=== PATIENT | female | born 1960 | race Caucasian/White ===

== ENCOUNTER 2017-02-10 06:36 | Inpatient (IN) | payer OTHER ==
[~2017-02-10] VITALS: Ht 167.6 cm; Wt 78.6 kg
[~2017-02-10 06:36] MED LIST: ALBU8.5H5 INH; ASCO10004 PO; CEPH-368 PO; CHOL400C PO; CHOL500015 PO; COLON HEALTH PO; DEXA2TAB PO; DIAZ5TAB4 PO; ESOM40CA PO; ESTR1PAT10 TD; FISH OIL OMEGA1 EACH PO; HYDR-3144 PO; HYDR-3240 PO; HYDR-3307 PO; HYDR25TA6 PO; KRIL1CAP14 PO; LACT1CAP35 PO; LISI30TA4 PO; LORA10TA75 PO; METH4TAB2 PO; METH750T87 PO; MULT-6 PO; ONDA4TAB10 PO; OXYC-229 PO; OXYC5TAB3 PO; PANT40TA5 PO; PROM25SU34 RC; VANC125C2 PO; VANC1VIA3 PO; VITA1TAB3 PO; VITAMIN E PO; ZOLP-413 PO
[2017-02-10] MEDS ORDERED: ACETAMINOPHEN 500 MG TABLET PO ONE (07:00)
[2017-02-10] MEDS ORDERED: SODIUM CHLORIDE FLUSH 10ML SYR IVF ONE (07:00)
[2017-02-10] MEDS ORDERED: SODIUM CHLORIDE 0.9% 1,000ML IVBOLUS ONE (07:00)
[2017-02-10] MEDS ORDERED: ONDANSETRON 2MG/ML, 2ML IVPush ONE (07:00)
[2017-02-10] MEDS ORDERED: ONDANSETRON 2MG/ML, 2ML ONE (07:01)
[2017-02-10] MEDS ORDERED: ACETAMINOPHEN 500 MG TABLET ONE (07:01)
[2017-02-10] MEDS ORDERED: METOCLOPRAMIDE 5 MG/ML, 2ML IVPush ONE (07:30)
[2017-02-10] MEDS ORDERED: HYDROmorphone 1 MG/ML, 1ML ONE ×2 (07:42→10:02)
[2017-02-10 07:43] LABS: HEMOGLOBIN 12.8 g/dL (11.7-16.4)
[2017-02-10] MEDS ORDERED: METOCLOPRAMIDE 5 MG/ML, 2ML ONE (07:43)
[2017-02-10] MEDS: HYDROmorphone 1 MG/ML, 1ML IVPush PRN ×2 (07:45→10:06)
[2017-02-10 07:54] LABS: ASPARTATE AMINO TRANSFERASE 11 U/L (15-37); BLOOD UREA NITROGEN 5 mg/dL (7-18)
[2017-02-10] MEDS ORDERED: PIPERACILLIN/TAZO/PMX 3.375GM 50 ML IVPB ONE (08:00)
[2017-02-10 08:16] LABS: DIFF TOTAL CELLS COUNTED 100 CELL DIFF
[2017-02-10 08:19] LABS: VERIFY COUNTS? YES
[2017-02-10] MEDS ORDERED: SODIUM CHLORIDE 0.9% 1,000 ML IV ONE (08:40)
[2017-02-10] MEDS ORDERED: OMNIPAQUE 350 MG/ML, 100ML BOTTLE ONE (08:57)
[2017-02-10] MEDS ORDERED: PIPERACILLIN/TAZO/PMX 3.375GM 50 ML ONE (09:11)
[2017-02-10] MEDS ORDERED: VANCOMYCIN PER PHARMACY MC PRN (09:30)
[2017-02-10] MEDS ORDERED: ACETAMINOPHEN 325 MG TABLET PO PRN (10:00)
[2017-02-10] MEDS ORDERED: POLYETHYLENE GLYCOL 17 GM PACKET PO PRN (10:00)
[2017-02-10] MEDS ORDERED: DOCUSATE 100 MG CAPSULE PO PRN (10:00)
[2017-02-10] MEDS ORDERED: OXYcodone IR 5MG TABLET PO PRN (10:00)
[2017-02-10] MEDS: PIPERACILLIN/TAZO/PMX 3.375GM 50 ML IV SCH ×3 (10:00→21:44)
[2017-02-10] MEDS ORDERED: BISACODYL 10 MG SUPP PR PRN (10:00)
[2017-02-10] MEDS ORDERED: GASTROGRAFIN 120 ML SOLN PO ONE (10:11)
[2017-02-10 10:20] LABS: IS PT STATUS REG ER OR PRE ER? NO
[2017-02-10] MEDS ORDERED: ENOXAPARIN 40 MG/0.4 ML ONE (11:32)
[2017-02-10] MEDS: ENOXAPARIN 40 MG/0.4 ML SQ SCH (11:55)
[2017-02-10] MEDS ORDERED: MORPHINE SULFATE 4 MG/ML, 1ML ONE (12:14)
[2017-02-10] MEDS: MORPHINE SULFATE 4 MG/ML, 1ML IVPush PRN ×4 (12:15→22:47)
[2017-02-10] MEDS ORDERED: PHARMACOKINETIC CONSULTATION MC ONE (13:00)
[2017-02-10] MEDS ORDERED: PHARMACOKINETIC MONITORING MC PRN (13:30)
[2017-02-10 14:00] VITALS: BP 130/83
[2017-02-10] MEDS: VANCOMYCIN 1,500 MG in SODIUM CHLORIDE 0.9% 250 ML IV SCH (14:08)
[2017-02-10 15:56] LABS: IS PT STATUS REG ER OR PRE ER? NO
[2017-02-10] MEDS ORDERED: ENALAPRILAT 1.25 MG/ML, 2ML IV PRN (17:30)
[2017-02-10] MEDS: LORazepam 2 MG/ML, 1ML IVPush PRN (18:13)
[2017-02-10 20:04] VITALS: BP 130/83
[2017-02-10] MEDS: BENZOCAINE 20% SPRAY 0.5ML TP PRN ×3 (20:19→22:48)
[2017-02-10] MEDS: ALBUTEROL SULFATE 2.5 MG/3 ML NPPB PRN (22:27)
[2017-02-11 02:58] VITALS: BP 117/72
[2017-02-11] MEDS: BENZOCAINE 20% SPRAY 0.5ML TP PRN ×2 (03:17→09:35)
[2017-02-11] MEDS: MORPHINE SULFATE 4 MG/ML, 1ML IVPush PRN ×5 (03:17→18:57)
[2017-02-11] MEDS: PIPERACILLIN/TAZO/PMX 3.375GM 50 ML IV SCH ×4 (03:20→21:44)
[2017-02-11 06:26] LABS: HEMOGLOBIN 11.1 g/dL (11.7-16.4)
[2017-02-11 06:43] LABS: ASPARTATE AMINO TRANSFERASE 10 U/L (15-37); BLOOD UREA NITROGEN 7 mg/dL (7-18)
[2017-02-11] MEDS: VANCOMYCIN 1,500 MG in SODIUM CHLORIDE 0.9% 250 ML IV SCH (07:10)
[2017-02-11] MEDS ORDERED: OMEPRAZOLE 20 MG CAPSULE.DR PO SCH (07:30)
[2017-02-11 08:21] VITALS: BP 100/63
[2017-02-11] MEDS ORDERED: HYDROCHLOROTHIAZIDE 25 MG TABLET PO SCH (09:00)
[2017-02-11] MEDS ORDERED: SENNA/DOCUSATE TABLET PO SCH (09:00)
[2017-02-11] MEDS ORDERED: LISINOPRIL 10 MG TABLET PO SCH (09:00)
[2017-02-11] MEDS: ENOXAPARIN 40 MG/0.4 ML SQ SCH (09:36)
[2017-02-11] MEDS ORDERED: ACETAMINOPHEN 650 MG/20.3 ML UDC PO PRN (12:00)
[2017-02-11] MEDS: LORazepam 2 MG/ML, 1ML IVPush PRN ×2 (12:07→22:03)
[2017-02-11 13:48] VITALS: BP 145/83
[2017-02-11] MEDS: ALBUTEROL SULFATE 2.5 MG/3 ML NPPB PRN (18:20)
[2017-02-11] MEDS: ONDANSETRON 2MG/ML, 2ML IVP PRN (19:11)
[2017-02-11 20:41] VITALS: BP 112/73
[2017-02-12] MEDS: VANCOMYCIN 1,500 MG in SODIUM CHLORIDE 0.9% 250 ML IV SCH ×2 (01:12→18:31)
[2017-02-12 03:00] VITALS: BP 117/73
[2017-02-12] MEDS: PIPERACILLIN/TAZO/PMX 3.375GM 50 ML IV SCH ×4 (03:15→23:13)
[2017-02-12] MEDS: MORPHINE SULFATE 4 MG/ML, 1ML IVPush PRN ×4 (03:15→20:12)
[2017-02-12] MEDS: ONDANSETRON 2MG/ML, 2ML IVP PRN (03:15)
[2017-02-12 06:02] LABS: HEMOGLOBIN 10.9 g/dL (11.7-16.4)
[2017-02-12 06:28] LABS: BLOOD UREA NITROGEN 10 mg/dL (7-18)
[2017-02-12] MEDS: METOCLOPRAMIDE 5 MG/ML, 2ML IVPush PRN ×2 (07:32→20:30)
[2017-02-12 08:32] VITALS: BP 121/76
[2017-02-12] MEDS: ENOXAPARIN 40 MG/0.4 ML SQ SCH (13:32)
[2017-02-12 13:43] VITALS: BP 128/77
[2017-02-12] MEDS: ALBUTEROL SULFATE 2.5 MG/3 ML NPPB PRN (15:50)
[2017-02-12 19:56] VITALS: BP 107/64
[2017-02-12] MEDS: ALBUTEROL SULFATE 2.5 MG/3 ML NPPB SCH (20:03)
[2017-02-12] MEDS: LORazepam 2 MG/ML, 1ML IVPush PRN (23:13)
[2017-02-13 01:24] VITALS: BP 128/80
[2017-02-13] MEDS: METOCLOPRAMIDE 5 MG/ML, 2ML IVPush PRN (03:21)
[2017-02-13] MEDS: MORPHINE SULFATE 4 MG/ML, 1ML IVPush PRN ×4 (04:15→20:52)
[2017-02-13] MEDS: PIPERACILLIN/TAZO/PMX 3.375GM 50 ML IV SCH ×4 (05:39→23:20)
[2017-02-13] MEDS: ALBUTEROL SULFATE 2.5 MG/3 ML NPPB SCH ×4 (06:00→19:16)
[2017-02-13 06:09] LABS: HEMOGLOBIN 10.3 g/dL (11.7-16.4)
[2017-02-13 06:18] LABS: BLOOD UREA NITROGEN 6 mg/dL (7-18)
[2017-02-13 07:43] VITALS: BP 130/83
[2017-02-13] MEDS ORDERED: POTASSIUM CHLORIDE 20 MEQ in SODIUM CHLORIDE 0.9% 250 ML IV ONE (08:00)
[2017-02-13] MEDS: ENOXAPARIN 40 MG/0.4 ML SQ SCH (09:35)
[2017-02-13] MEDS ORDERED: MIDAZOLAM 1 MG/ML, 2ML ONE (10:45)
[2017-02-13] MEDS ORDERED: FENTANYL PF 250 MCG/5ML ONE (10:46)
[2017-02-13] MEDS ORDERED: PHENYLEPHRINE 10 MG/ML ONE (10:53)
[2017-02-13] MEDS ORDERED: PROPOFOL 10 MG/ML, 20ML ONE (10:53)
[2017-02-13] MEDS ORDERED: SUCCINYLCHOLINE 20 MG/ML, 10ML ONE (10:53)
[2017-02-13] MEDS ORDERED: ROCURONIUM 10 MG/ML ONE (10:53)
[2017-02-13] MEDS ORDERED: DEXAMETHASONE 4 MG/ML, 1ML ONE (10:53)
[2017-02-13] MEDS ORDERED: ONDANSETRON 2MG/ML, 2ML ONE (10:53)
[2017-02-13] MEDS ORDERED: MIDAZOLAM 1 MG/ML, 2ML IV PRN (11:30)
[2017-02-13] MEDS ORDERED: METOCLOPRAMIDE 5 MG/ML, 2ML IV PRN (11:30)
[2017-02-13] MEDS ORDERED: ACETAMINOPHEN 325 MG TABLET PO PRN (11:30)
[2017-02-13] MEDS ORDERED: OXYcodone 5 MG/5 ML ORAL.SOL UDC PO PRN (11:30)
[2017-02-13] MEDS ORDERED: LABETALOL 5MG/ML, 20ML IV PRN (11:30)
[2017-02-13] MEDS ORDERED: PROMETHAZINE 25 MG/ML, 1ML IV PRN (11:30)
[2017-02-13] MEDS ORDERED: MEPERIDINE/PF 25MG/0.5ML IVPush PRN (11:30)
[2017-02-13] MEDS ORDERED: HYDROmorphone 1 MG/ML, 1ML IV PRN (11:30)
[2017-02-13] MEDS ORDERED: FENTANYL PF 100 MCG/2ML IV PRN (11:30)
[2017-02-13] MEDS ORDERED: ONDANSETRON 2MG/ML, 2ML IVPush PRN (11:30)
[2017-02-13] MEDS ORDERED: hydrALAzine 20 MG/ML, 1ML IV PRN (11:30)
[2017-02-13] MEDS ORDERED: ALBUTEROL SULFATE 2.5 MG/3 ML ONE (11:43)
[2017-02-13] MEDS ORDERED: ALBUTEROL SULFATE 2.5 MG/3 ML NPPB PRN (12:00)
[2017-02-13] MEDS: VANCOMYCIN 1,500 MG in SODIUM CHLORIDE 0.9% 250 ML IV SCH (14:04)
[2017-02-13 14:30] VITALS: BP 117/75
[2017-02-13] MEDS ORDERED: FUROSEMIDE 20 MG/2 ML IV ONE (18:30)
[2017-02-13 20:00] VITALS: BP 121/73
[2017-02-13] MEDS: LORazepam 2 MG/ML, 1ML IVPush PRN (20:35)
[2017-02-14 02:00] VITALS: BP 134/81
[2017-02-14] MEDS: ONDANSETRON 2MG/ML, 2ML IVP PRN (04:05)
[2017-02-14] MEDS: MORPHINE SULFATE 4 MG/ML, 1ML IVPush PRN ×4 (04:09→22:04)
[2017-02-14] MEDS: PIPERACILLIN/TAZO/PMX 3.375GM 50 ML IV SCH (05:32)
[2017-02-14] MEDS: ALBUTEROL SULFATE 2.5 MG/3 ML NPPB SCH ×4 (06:00→19:29)
[2017-02-14 06:04] LABS: HEMOGLOBIN 11.2 g/dL (11.7-16.4)
[2017-02-14 06:17] LABS: BLOOD UREA NITROGEN 3 mg/dL (7-18)
[2017-02-14] MEDS: VANCOMYCIN 1,500 MG in SODIUM CHLORIDE 0.9% 250 ML IV SCH (06:33)
[2017-02-14 06:40] VITALS: BP 117/72
[2017-02-14] MEDS: ENOXAPARIN 40 MG/0.4 ML SQ SCH (11:36)
[2017-02-14] MEDS: POTASSIUM CHLORIDE 20 MEQ TAB.ER.PRT PO SCH ×2 (11:36→17:04)
[2017-02-14] MEDS ORDERED: GUAIFENESIN 100 MG/5 ML, 10ML UDC PO PRN (12:00)
[2017-02-14 12:33] VITALS: BP 120/79
[2017-02-14] MEDS: AMOXICILLIN/CLAV 875-125MG TABLET PO SCH (17:04)
[2017-02-14 20:00] VITALS: BP 122/73
[2017-02-15 02:00] VITALS: BP 125/81
[2017-02-15] MEDS: ONDANSETRON 2MG/ML, 2ML IVP PRN (04:14)
[2017-02-15 05:01] LABS: BLOOD UREA NITROGEN 6 mg/dL (7-18)
[2017-02-15] MEDS: AMOXICILLIN/CLAV 875-125MG TABLET PO SCH ×2 (05:03→19:04)
[2017-02-15 06:44] VITALS: BP 134/83
[2017-02-15] MEDS: ALBUTEROL SULFATE 2.5 MG/3 ML NPPB SCH ×2 (07:25→11:55)
[2017-02-15] MEDS: METOCLOPRAMIDE 5 MG/ML, 2ML IVPush PRN (09:12)
[2017-02-15] MEDS: ENOXAPARIN 40 MG/0.4 ML SQ SCH (10:00)
[2017-02-15] MEDS ORDERED: PROC5TAB40 PO (10:36)
[2017-02-15] MEDS ORDERED: AMOX1TAB12 PO ×2 (10:36→10:44)
[2017-02-15] MEDS: LORazepam 2 MG/ML, 1ML IVPush PRN ×2 (12:20→22:42)
[2017-02-15 12:42] VITALS: BP 156/87
[2017-02-15] MEDS ORDERED: PROCHLORPERAZINE 5 MG TABLET PO PRN (17:30)
[2017-02-15] MEDS: LACTOBACILLUS CHEW TABLET PO SCH ×2 (19:04→19:47)
[2017-02-15 20:00] VITALS: BP 155/91
[2017-02-15] MEDS: MORPHINE SULFATE 4 MG/ML, 1ML IVPush PRN (20:12)
[2017-02-16 02:00] VITALS: BP 139/83
[2017-02-16] MEDS: AMOXICILLIN/CLAV 875-125MG TABLET PO SCH (05:27)
[2017-02-16 05:52] LABS: BLOOD UREA NITROGEN 6 mg/dL (7-18)
[2017-02-16] MEDS ORDERED: POTASSIUM CHLORIDE 10% 40 MEQ/30 ML UDC PO ONE (07:30)
[2017-02-16 07:45] VITALS: BP 132/86
[2017-02-16] MEDS: LACTOBACILLUS CHEW TABLET PO SCH (07:49)
[2017-02-16] MEDS ORDERED: AMOX1TAB12 PO (08:20)
== END 2017-02-16 09:15 | disposition home or self-care (01) | DRG 871 ==
LOC: ED 07:43 → EDIP 08:38 → 4EST 12:27
PROVIDERS: ADMIT Internal Medicine; ATTEND Internal Medicine
PROC: 0T9B70Z Drainage of Bladder with Drainage Device, Via Natural or Artificial Opening (ICD-10-PCS; principal; 2017-02-10)
PROC: 0D798ZZ Dilation of Duodenum, Via Natural or Artificial Opening Endoscopic (ICD-10-PCS; 2017-02-13)
DX: A41.9 Sepsis, unspecified organism (principal); J96.01 Acute respiratory failure with hypoxia; E43 Unspecified severe protein-calorie malnutrition; J15.9 Unspecified bacterial pneumonia; J90 Pleural effusion, not elsewhere classified; J98.11 Atelectasis; I10 Essential (primary) hypertension; K21.9 Gastro-esophageal reflux disease without esophagitis; K57.90 Diverticulosis of intestine, part unspecified, without perforation or abscess without bleeding; K44.9 Diaphragmatic hernia without obstruction or gangrene; J45.909 Unspecified asthma, uncomplicated; F17.200 Nicotine dependence, unspecified, uncomplicated; R65.20 Severe sepsis without septic shock; Z86.19 Personal history of other infectious and parasitic diseases; E87.6 Hypokalemia; K31.89 Other diseases of stomach and duodenum; D63.8 Anemia in other chronic diseases classified elsewhere; K57.50 Diverticulosis of both small and large intestine without perforation or abscess without bleeding; M54.12 Radiculopathy, cervical region; G89.29 Other chronic pain; M54.9 Dorsalgia, unspecified
CPT/HCPCS: 36415; 71010; 71275; 74000; 74177; 74241; 74245; 80048; 80053; 80202; 81003; 83605; 83690; 83735; 84145; 84443; 84484; 85025; 85610; 87040; 87070; 87205; 87324; 87493; 93005; 93306; 94640; 96361; 96365; 96375; 96376; J1100; J1170; J1650; J2250; J2405; J2543; J2704; J3010; J3370; J3480; J7613; Q9963; Q9967; C1725; J0330; J1940; J2060; J2370; J2765; J7030; J7050

== ENCOUNTER → 2017-04-03 | Outpatient (CLI) | payer OTHER ==
[~2017-04-03] MED LIST changes: +AMOX1TAB12 PO; +HYDR2TAB13 PO; +MAG355OR14 PO; +PROC5TAB40 PO
== END | disposition home or self-care (01) ==
LOC: RAD 05:28
PROVIDERS: ATTEND Family Medicine
DX: J18.9 Pneumonia, unspecified organism (principal); R06.02 Shortness of breath
CPT/HCPCS: 71020

== ENCOUNTER 2020-02-11 09:57 | Inpatient (IN) | payer OTHER ==
[~2020-02-11] VITALS: Ht 167.6 cm; Wt 85.9 kg
[~2020-02-11 09:57] MED LIST changes: -HYDR-3144 PO; +HYDR-3245 PO; -HYDR-3307 PO; +HYDR-36 PO; -HYDR2TAB13 PO; +HYDR2TAB29 PO; -OXYC-229 PO; +OXYC-307 PO; -VANC125C2 PO; +VANC125C3 PO
[2020-02-11] MEDS ORDERED: MORPHINE SULFATE 4 MG/ML, 1ML ONE ×3 (10:38→13:48)
[2020-02-11] MEDS ORDERED: ONDANSETRON 2MG/ML, 2ML ONE ×2 (10:38→13:48)
[2020-02-11] MEDS: MORPHINE SULFATE 4 MG/ML, 1ML IVPush PRN ×4 (10:56→21:38)
[2020-02-11] MEDS: ONDANSETRON 2MG/ML, 2ML IVPush PRN ×3 (10:57→20:45)
[2020-02-11] MEDS ORDERED: SODIUM CHLORIDE FLUSH 10ML SYR IVF ONE (11:00)
[2020-02-11 11:14] LABS: BASOPHILS # (AUTO) 0.03 x10^3/uL (0-0.1); BASOPHILS % (AUTO) 0 % (0-1); EOSINOPHILS # (AUTO) 0.19 x10^3/uL (0-0.4); EOSINOPHILS % (AUTO) 2 % (1-7); LYMPHOCYTES # (AUTO) 1.66 x10^3/uL (1-3.4); LYMPHOCYTES % (AUTO) 16 % (22-44); MD NO; MEAN CORPUSCULAR HEMOGLOBIN 30.7 pg (27.0-34.8); MEAN CORPUSCULAR HGB CONC 33.6 g/dL (32.4-35.8); MEAN CORPUSCULAR VOLUME 91.4 fL (80-100); MONOCYTES % (AUTO) 7 % (2-9); NEUTROPHILS # (AUTO) 7.81 x10^3/uL (1.8-6.8); NEUTROPHILS % (AUTO) 75 % (42-75); PLATELET COUNT 278 x10^3/uL (130-400); RED BLOOD COUNT 4.63 x10^6/uL (3.82-5.3); RED CELL DISTRIBUTION WIDTH 13.1 % (9.6-15.2)
--- NOTE | 2020-02-11 11:15 | NUR ---
PT TO ROOM 29 PER WHEELCHAIR. PT C/O LEFT SIDED CHEST PAIN THAT RADIATES TO BACK. PT FELL ON SATURDAY NIGHT AND HIT SIDES ON BATHTUB. PT WAS TAKEN TO [place] ON SATURDAY, AND WAS DIAGNOSED WITH CONTUSIONS. PT PLACED AN OLD ABDOMINAL BINDER ON FOR COMFORT, AND NOW HAVING DIFFICULTY TAKING DEEP BREATHS WITH EXTREME PAIN. IV STARTED, LAB DRAWN, PLACED IN GOWN, PLACED ON MONITOR, GIVEN CALL LIGHT AND MADE COMFORTABLE. WILL CONTINUE TO MONITOR PATIENT.
[2020-02-11 11:25] LABS: ALANINE AMINOTRANSFERASE 25 U/L (12-78); ALBUMIN 3.2 g/dL (3.4-5.0); ANION GAP 6 mmol/L (5-15); CALCIUM 10.1 mg/dL (8.5-10.1); CHLORIDE 99 mmol/L (98-107); CREATININE 1.01 mg/dL (0.55-1.02)
[2020-02-11 11:27] LABS: ALKALINE PHOSPHATASE 67 U/L (45-117); BILIRUBIN,TOTAL 0.4 mg/dL (0.2-1.0); TOTAL PROTEIN 7.4 g/dL (6.4-8.2)
[2020-02-11] MEDS ORDERED: CEFTRIAXONE PMX 1GM/50ML 50 ML IV ONE ×2 (11:30→15:00)
[2020-02-11] MEDS ORDERED: CEFTRIAXONE PMX 1GM/50ML 50 ML ONE (11:33)
--- NOTE | 2020-02-11 11:55 | NUR ---
ANTIBIOTICS STARTED WITHOUT DIFF. PT C/O PAIN WITH COUGH AND DEEP BREATHING. SECOND DOSE OF IV MORPHINE GIVEN. PT INSTRUCTED ON IMPORTANCE OF TAKING DEEP BREATHS, AND COUGHING OUT THE PHLEGHM. PT VERBALIZES UNDERSTANDING OF ALL INSTRUCTIONS, NO QUESTIONS REGARDING ANTIBIOTICS.
[2020-02-11] MEDS ORDERED: AZITHROMYCIN 500 MG in SODIUM CHLORIDE 0.9% 250 ML IV ONE (12:00)
--- NOTE | 2020-02-11 12:45 | NUR ---
ANTIBIOTICS FINISHED. LINE FLUSHED WITHOUT DIFF. PATIENT REPOSITIONED, ONLY C/O PAIN WHEN MOVING OR COUGHING.
--- NOTE | 2020-02-11 13:03 | NUR ---
PT STABLE, C/O PAIN WHEN MOVING OR COUGHING. PT HAS AUDIBLE WHEEZING, BUT IT IS ALL IN HER THROAT. PT UNABLE TO FULLY CLEAR AIRWAY OF PHLEGHM DUE TO PAIN IN CAUSES. RN INSTRUCTED PATIENT OF NEED TO COUGH AND DEEP BREATH. 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 PT TEACHES BACK ON THE IMPORTANCE OF C&DB EXERCISES, AND IS ABLE TO CLEAR HER THROAT WITH RN AT BEDSIDE. AWAITING ROOM ASSIGNMENT. PT GIVEN FRESH WARM BLANKET, AND HELPED REPOSITION WITH PILLOWS FOR BETTER SUPPORT. PT GIVEN FOLDED BLANKET TO USE A SPLINT WHEN PERFORMING HER C&DB EXERCISES.
--- NOTE | 2020-02-11 13:55 | NUR ---
ADMITTING DOCTOR AT BEDSIDE. DR. ORTIZ AT BEDSIDE FOR COVID TESTING. PT SITTING ON SIDE OF BED WITH HELP FROM 2 RN'S, O2 SAT BELOW 90%, OXYGEN HAS BEEN TURNED OFF. RN TURNS OXYGEN BACK ON TO 4L NC, AND MD ASKED FOR ADDITIONAL PAIN MEDICATIONS. PT AMBULATES TO BR WITH ONE ASSIST, O2 LESS THAN 90% UPON RETURN TO ROOM. IV MEDICATIONS GIVEN AND PATIENT AGAIN TAUGHT BREATHING TECHNIQUES. AWAITING BED PLACEMENT.
[2020-02-11] MEDS ORDERED: ONDANSETRON ODT 4 MG PO PRN (14:00)
[2020-02-11] MEDS ORDERED: MORPHINE SULFATE 4 MG/ML, 1ML IVPush PRN (14:00)
[2020-02-11] MEDS ORDERED: BISACODYL 10 MG SUPP PR PRN (14:00)
[2020-02-11] MEDS ORDERED: PROMETHAZINE 25 MG SUPP PR PRN (14:00)
--- NOTE | 2020-02-11 14:17 | NUR ---
REPORT TO CHERELLE JIMENEZ. PT ASYA.
--- NOTE | 2020-02-11 14:48 | NUR ---
ASSISTED WITH TRANSPORT
[2020-02-11 14:50] VITALS: BP 135/82
[2020-02-11] MEDS ORDERED: ALBUTEROL HFA 90 MCG/SPRAY INH PRN (15:00)
[2020-02-11] MEDS: KETOROLAC 30 MG/1 ML IV PRN ×2 (15:05→20:45)
[2020-02-11] MEDS: ACETAMINOPHEN 325 MG TABLET PO SCH ×2 (15:05→20:44)
[2020-02-11] MEDS: SODIUM CHLORIDE 0.9% 1,000 ML IV SCH (15:05)
[2020-02-11] MEDS: ENOXAPARIN 40 MG/0.4 ML SQ SCH (17:11)
[2020-02-11 21:48] VITALS: BP 111/52
[2020-02-12 00:14] VITALS: BP 110/61
[2020-02-12] MEDS: MORPHINE SULFATE 4 MG/ML, 1ML IVPush PRN ×3 (00:45→08:08)
[2020-02-12] MEDS: ACETAMINOPHEN 325 MG TABLET PO SCH ×4 (03:33→20:10)
[2020-02-12] MEDS: KETOROLAC 30 MG/1 ML IV PRN ×3 (03:34→23:13)
[2020-02-12] MEDS: SODIUM CHLORIDE 0.9% 1,000 ML IV SCH (03:35)
[2020-02-12 06:22] LABS: BASOPHILS % (AUTO) 1 % (0-1); EOSINOPHILS # (AUTO) 0.16 x10^3/uL (0-0.4); EOSINOPHILS % (AUTO) 1 % (1-7); LYMPHOCYTES # (AUTO) 1.63 x10^3/uL (1-3.4); LYMPHOCYTES % (AUTO) 11 % (22-44); MD NO; MEAN CORPUSCULAR HEMOGLOBIN 30.2 pg (27.0-34.8); MEAN CORPUSCULAR VOLUME 91.5 fL (80-100); MEAN PLATELET VOLUME 9.4 fL (7.4-10.4); MONOCYTES # (AUTO) 1.03 x10^3/uL (0.2-0.8); MONOCYTES % (AUTO) 7 % (2-9); NEUTROPHILS # (AUTO) 11.36 x10^3/uL (1.8-6.8); NEUTROPHILS % (AUTO) 80 % (42-75); PLATELET COUNT 238 x10^3/uL (130-400); RED BLOOD COUNT 4.08 x10^6/uL (3.82-5.3); RED CELL DISTRIBUTION WIDTH 13.1 % (9.6-15.2)
[2020-02-12 06:26] LABS: ANION GAP 5 mmol/L (5-15); CHLORIDE 103 mmol/L (98-107)
[2020-02-12 06:27] LABS: CREATININE 0.87 mg/dL (0.55-1.02)
[2020-02-12 08:00] VITALS: BP 110/39
[2020-02-12] MEDS: AZITHROMYCIN 500 MG TABLET PO SCH (08:08)
[2020-02-12] MEDS: LACTOBACILLUS CHEW TABLET PO SCH (08:09)
[2020-02-12] MEDS: SENNA/DOCUSATE TABLET PO SCH ×2 (08:09→08:26)
[2020-02-12] MEDS: ASCORBIC ACID 500 MG TABLET PO SCH (08:09)
[2020-02-12] MEDS: LISINOPRIL 10 MG TABLET PO SCH (08:09)
[2020-02-12] MEDS: CHOLECALCIFEROL 5,000u TAB PO SCH (08:09)
[2020-02-12] MEDS: HYDROcodone/APAP 5/325 TABLET PO PRN ×3 (11:19→23:12)
[2020-02-12 13:27] VITALS: BP 124/55
[2020-02-12] MEDS ORDERED: LORazepam 1MG TABLET PO PRN (14:00)
[2020-02-12] MEDS: CEFTRIAXONE PMX 2GM/50ML 50 ML IV SCH (16:02)
[2020-02-12] MEDS: ENOXAPARIN 40 MG/0.4 ML SQ SCH (17:27)
[2020-02-12 17:55] LABS: MICROSCOPIC NOT IND
[2020-02-12 17:59] LABS: CULTURE INDICATED? NO
[2020-02-12 20:54] VITALS: BP 110/42
[2020-02-12] MEDS ORDERED: MELATONIN 3 MG TABLET PO PRN (22:15)
[2020-02-12] MEDS: DIPHENHYDRAMINE 25 MG CAPSULE PO PRN (23:12)
[2020-02-13 01:14] VITALS: BP 104/66
[2020-02-13] MEDS: ACETAMINOPHEN 325 MG TABLET PO SCH ×2 (03:00→08:39)
[2020-02-13] MEDS: HYDROcodone/APAP 5/325 TABLET PO PRN ×4 (05:35→22:32)
[2020-02-13 06:28] LABS: BASOPHILS # (AUTO) 0.03 x10^3/uL (0-0.1); BASOPHILS % (AUTO) 0 % (0-1); EOSINOPHILS # (AUTO) 0.43 x10^3/uL (0-0.4); EOSINOPHILS % (AUTO) 5 % (1-7); LYMPHOCYTES # (AUTO) 1.78 x10^3/uL (1-3.4); LYMPHOCYTES % (AUTO) 21 % (22-44); MD NO; MEAN CORPUSCULAR HEMOGLOBIN 30.2 pg (27.0-34.8); MEAN CORPUSCULAR HGB CONC 32.9 g/dL (32.4-35.8); MEAN CORPUSCULAR VOLUME 91.8 fL (80-100); MEAN PLATELET VOLUME 8.9 fL (7.4-10.4); MONOCYTES # (AUTO) 0.64 x10^3/uL (0.2-0.8); MONOCYTES % (AUTO) 7 % (2-9); NEUTROPHILS # (AUTO) 5.77 x10^3/uL (1.8-6.8); NEUTROPHILS % (AUTO) 67 % (42-75); PLATELET COUNT 252 x10^3/uL (130-400); RED BLOOD COUNT 4.17 x10^6/uL (3.82-5.3); RED CELL DISTRIBUTION WIDTH 13.3 % (9.6-15.2)
[2020-02-13 06:41] LABS: ALBUMIN 2.5 g/dL (3.4-5.0); ANION GAP 6 mmol/L (5-15); CALCIUM 9.3 mg/dL (8.5-10.1); CHLORIDE 105 mmol/L (98-107)
[2020-02-13 06:44] LABS: ALANINE AMINOTRANSFERASE 21 U/L (12-78); ALKALINE PHOSPHATASE 62 U/L (45-117); BILIRUBIN,TOTAL 0.2 mg/dL (0.2-1.0); CREATININE 0.81 mg/dL (0.55-1.02); TOTAL PROTEIN 6.3 g/dL (6.4-8.2)
[2020-02-13] MEDS: ASCORBIC ACID 500 MG TABLET PO SCH (08:39)
[2020-02-13] MEDS: AZITHROMYCIN 500 MG TABLET PO SCH (08:40)
[2020-02-13] MEDS: SENNA/DOCUSATE TABLET PO SCH (08:40)
[2020-02-13] MEDS: CHOLECALCIFEROL 5,000u TAB PO SCH (08:40)
[2020-02-13] MEDS: LACTOBACILLUS CHEW TABLET PO SCH (08:40)
[2020-02-13] MEDS: LISINOPRIL 10 MG TABLET PO SCH (08:40)
[2020-02-13 08:45] VITALS: BP 109/58
[2020-02-13] MEDS ORDERED: ACETAMINOPHEN 325 MG TABLET PO PRN (13:00)
[2020-02-13 13:28] VITALS: BP 128/79
[2020-02-13] MEDS: KETOROLAC 30 MG/1 ML IV PRN (14:23)
[2020-02-13] MEDS ORDERED: OMNIPAQUE 350 MG/ML, 75ML BOTTLE ONE (14:45)
[2020-02-13] MEDS: CEFTRIAXONE PMX 2GM/50ML 50 ML IV SCH (15:13)
[2020-02-13] MEDS: ENOXAPARIN 40 MG/0.4 ML SQ SCH (16:33)
[2020-02-13 18:52] VITALS: BP 146/82
[2020-02-14] MEDS: DIPHENHYDRAMINE 25 MG CAPSULE PO PRN (00:04)
[2020-02-14 01:51] VITALS: BP 121/66
[2020-02-14] MEDS: HYDROcodone/APAP 5/325 TABLET PO PRN ×2 (05:45→10:52)
[2020-02-14 06:12] LABS: BASOPHILS # (AUTO) 0.08 x10^3/uL (0-0.1); BASOPHILS % (AUTO) 1 % (0-1); EOSINOPHILS # (AUTO) 0.36 x10^3/uL (0-0.4); EOSINOPHILS % (AUTO) 5 % (1-7); LYMPHOCYTES # (AUTO) 1.71 x10^3/uL (1-3.4); LYMPHOCYTES % (AUTO) 24 % (22-44); MD NO; MEAN CORPUSCULAR HEMOGLOBIN 30.3 pg (27.0-34.8); MEAN CORPUSCULAR HGB CONC 32.9 g/dL (32.4-35.8); MEAN PLATELET VOLUME 8.6 fL (7.4-10.4); MONOCYTES # (AUTO) 0.48 x10^3/uL (0.2-0.8); MONOCYTES % (AUTO) 7 % (2-9); NEUTROPHILS % (AUTO) 63 % (42-75); PLATELET COUNT 314 x10^3/uL (130-400); RED BLOOD COUNT 4.08 x10^6/uL (3.82-5.3); RED CELL DISTRIBUTION WIDTH 13.1 % (9.6-15.2)
[2020-02-14 06:14] LABS: ANION GAP 4 mmol/L (5-15); CALCIUM 9.4 mg/dL (8.5-10.1); CHLORIDE 106 mmol/L (98-107); CREATININE 0.87 mg/dL (0.55-1.02)
[2020-02-14 08:17] VITALS: BP 132/55
[2020-02-14] MEDS: LACTOBACILLUS CHEW TABLET PO SCH (08:25)
[2020-02-14] MEDS: AZITHROMYCIN 500 MG TABLET PO SCH (08:25)
[2020-02-14] MEDS: LISINOPRIL 10 MG TABLET PO SCH (08:25)
[2020-02-14] MEDS: SENNA/DOCUSATE TABLET PO SCH ×2 (08:25→10:52)
[2020-02-14] MEDS: ONDANSETRON 2MG/ML, 2ML IVPush PRN (10:53)
[2020-02-14] MEDS ORDERED: GUAIFENESIN 200 MG TABLET PO SCH (11:00)
[2020-02-14] MEDS ORDERED: GUAI200T37 PO (12:10)
[2020-02-14] MEDS ORDERED: DOXY100C2 PO (12:10)
[2020-02-14] MEDS ORDERED: IBUP-1902 PO (12:10)
[2020-02-14] MEDS ORDERED: AMOX1TAB64 PO (12:10)
== END 2020-02-14 14:12 | disposition home or self-care (01) | DRG 193 ==
LOC: ED 10:40 → EDIP 13:40 → 3E 14:30 → 3N 02-13 13:49
PROVIDERS: ADMIT Internal Medicine; ATTEND Internal Medicine
DX: J18.1 Lobar pneumonia, unspecified organism (principal); J96.01 Acute respiratory failure with hypoxia; E87.1 Hypo-osmolality and hyponatremia; J90 Pleural effusion, not elsewhere classified; I10 Essential (primary) hypertension; E66.9 Obesity, unspecified; K21.9 Gastro-esophageal reflux disease without esophagitis; Z78.9 Other specified health status; Z68.30 Body mass index [BMI] 30.0-30.9, adult; Z20.828 Contact with and (suspected) exposure to other viral communicable diseases
CPT/HCPCS: 36415; 71045; 71275; 80048; 80053; 81003; 82728; 83605; 83615; 84145; 85025; 85379; 86140; 87040; 93005; 96374; 96376; 99285; G0378; J0456; J0696; J1650; J1885; J2405; Q0162; Q9967; J2270; J7030; J7050; Q0163; U0001